=== PATIENT | male | born 1995 | race Caucasian/White ===

== ENCOUNTER 2024-01-02 12:47 | Emergency (ER) | payer BC, SELFPAY ==
[2024-01-02 13:01] VITALS: BP 128/78; PULSE 74; RESP 16; TEMP 37.3; O2SAT 98
--- NOTE | 2024-01-02 13:18 | ED.URI ---
HPI - URI/Sore Throat General Chief Complaint: Upper Respiratory Infection Stated Complaint: cough,chest congestion,left ear pain Time Seen by Provider: 01/02/24 13:13 Source: patient and RN notes reviewed Mode of arrival: ambulatory Limitations: no limitations History of Present Illness HPI Narrative: Patient presents today complaining of an 8 day history of cough, rhinorrhea, congestion. Reports the rhinorrhea congestion have since resolved the cough has persisted. Reports left ear pain since yesterday. He does report some shortness of breath with exertion. Currently rates his ear pain 3/10 and has taken some DayQuil once without much relief. Related Data Allergies Allergy/AdvReac Type Severity Reaction Status Date / Time clarithromycin Allergy Intermediate increased Unverified 12/31/13 11:12 heart rate Review of Systems Review of Systems: CONSTITUTIONAL: Denies body aches, fever, chills, or sweats. EYES: Denies visual changes, redness, or discharge. ENT: Denies sore throat.+ rhinorrhea, congestion, left ear pain CARDIOVASCULAR: Denies chest pain, palpitations, or edema. RESPIRATORY: + cough, shortness of breath with exertion GASTROINTESTINAL: Denies abdominal pain, nausea, vomiting, or diarrhea. GENITOURINARY: Denies dysuria or hematuria. SKIN: Denies rash, itching, or wounds. MUSCULOSKELETAL: Denies back pain, joint pain, or myalgia. NEUROLOGIC: Denies headache, numbness, tingling, or weakness. PSYCH: Denies depression or anxiety. PMFSH Comments At time of signature, I have reviewed and agree with nursing past medical, surgical, social and family history unless otherwise noted. Please see nursing chart for further information. There is no relevant family history pertinent to the presenting complaint Exam Narrative: GENERAL: Well-appearing, well-nourished, and in no acute distress. HEAD: Normocephalic, atraumatic. EYES: EOMI. No redness or drainage. Conjunctivae normal. ENT: Mucous membranes pink and moist. Nares clear. No rhinorrhea. Right TM normal. Left TM erythematous and bulging. Throat normal. Uvula midline. NECK: Normal AROM. Supple. No lymphadenopathy. CHEST: No respiratory distress. Clear to auscultation. HEART: Regular rate and rhythm. No murmur appreciated. EXTREMITIES: Normal range of motion. No edema. SKIN: Warm, dry, no rash. Capillary refill normal. Normal skin turgor. NEURO: No focal deficits. Alert and oriented x3. Gait steady. PSYCH: Normal affect. No signs of depression or anxiety. Course Course Level of Care: Express Care Visit Vital Signs Vital signs: Vital Signs Temperature 99.2 F 01/02/24 13:01 Pulse Rate 74 01/02/24 13:01 Respiratory Rate 16 01/02/24 13:01 Blood Pressure 128/78 01/02/24 13:01 Pulse Oximetry 98 01/02/24 13:01 Oxygen Delivery Room Air 01/02/24 13:01 Temperature 99.2 F 01/02/24 13:01 Pulse Rate 74 01/02/24 13:01 Respiratory Rate 16 01/02/24 13:01 Blood Pressure 128/78 01/02/24 13:01 Pulse Oximetry 98 01/02/24 13:01 Oxygen Delivery Room Air 01/02/24 13:01 Reviewed MDM - URI/Sore Throat MDM Narrative Medical decision making narrative: Patient has been diagnosed with left otitis media and will be prescribed amoxicillin. He has declined prescription for prednisone to help with his persistent cough. Anticipatory guidance given. ED precautions given. Differential Diagnosis Differential diagnosis: Likely upper respiratory infection, otitis media, sinusitis, viral infection, bronchitis and other (Pneumonia) Critical Care Time Critical Care Time Critical Care Time: No Discharge Plan Discharge Clinical Impression: Acute left otitis media, Bronchitis Patient Disposition: Home, Self-Care Condition: Stable Instructions: Ear Infection (GEN), Acute Bronchitis (ED) Additional Instructions: Please take the amoxicillin as prescribed until gone. Taking anti-inflammatories such as Aleve or ib
== END 2024-01-02 13:25 | disposition home or self-care (01) ==
PROVIDERS: Emergency Provider Nurse Practitioner
DX: H66.92 Otitis media, unspecified, left ear (principal); J40 Bronchitis, not specified as acute or chronic
CPT/HCPCS: 99203; G0463

== ENCOUNTER 2024-06-06 10:14 | Emergency (ER) | payer BC, SELFPAY ==
[2024-06-06 10:24] VITALS: BP 138/75; PULSE 85; RESP 16; TEMP 36.7; O2SAT 100
--- NOTE | 2024-06-06 11:14 | ED_ITS ---
HPI - Dental/Oral General Chief complaint: Dental/Oral Stated complaint: Dental/Ear Pain Time Seen by Provider: 06/06/24 11:14 Source: patient, RN notes reviewed and old records reviewed Mode of arrival: ambulatory Limitations: no limitations History of Present Illness HPI Narrative: Patient presents with complaints of right lower dental pain and right-sided ear pain. He reports symptoms began about 4 days ago. He does know that he has a tooth that needs dental attention, states that he has some associated right- sided facial swelling. He has not been taking anything for his symptoms. He denies any fever, chills, sweats. He denies any difficulty swallowing. He denies any injury or trauma. Related Data Allergies Allergy/AdvReac Type Severity Reaction Status Date / Time clarithromycin Allergy Intermediate increased Verified 06/06/24 10:17 heart rate Review of Systems 2 Review of Systems: All systems reviewed & are unremarkable except as noted in HPI and below Constitutional: Constitutional: Reports no additional constitutional complaints ENT: Reports system reviewed and no additional complaints, except as documented, Reports dental pain and Reports otalgia Cardiovascular: Cardiovascular: Reports no additional cardiovascular complaints Respiratory: Respiratory: Reports no additional respiratory complaints Gastrointestinal: Gastrointestinal: Reports no additional gastrointestinal complaints PMFSH Comments At the time of my signature, I reviewed and agree with the nursing past medical, surgical, social, and family history. There is no relevant family history pertinent to the patient complaint. Exam 2 Const: General: cooperative, no acute distress, alert and awake O rientation/consciousness: oriented to person, oriented to place and oriented to time HENMT: Head: normal to inspection Ears: TM's normal bilaterally Face images: 1. trace swelling that does not extend into the Mouth: Yes moist mucous membranes Teeth and gingiva: caries, fair dentition and gingiva abnormal with purulent discharge (Surrounding tooth 31 which has active dental caries) Resp: Effort & Inspection: normal respiratory effort and able to speak in complete sentences Auscultation: clear to auscultation bilaterally, no crackles, no rales, no rhonchi and no wheezes Cardio: Palpation: normal PMI Rate: regular rate Rhythm: regular rhythm Heart sounds: S1 normal heart sound present and S2 normal heart sound present Neuro: General: oriented to person, oriented to place and oriented to time Cranial nerves: Yes CN's II-XII intact bilaterally Psych: Appearance: grossly normal Thought process: Normal thought process present Insight: Good insight present (Psych) Judgement: Good judgement present (Psych) Course Course Level of Care: Express Care Visit Vital Signs Vital signs: Vital Signs Temperature 98.0 F 06/06/24 10:24 Pulse Rate 85 06/06/24 10:24 Respiratory Rate 16 06/06/24 10:24 Blood Pressure 138/75 06/06/24 10:24 Pulse Oximetry 100 06/06/24 10:24 Oxygen Delivery Room Air 06/06/24 10:24 Temperature 98.0 F 06/06/24 10:24 Pulse Rate 85 06/06/24 10:24 Respiratory Rate 16 06/06/24 10:24 Blood Pressure 138/75 06/06/24 10:24 Pulse Oximetry 100 06/06/24 10:24 Oxygen Delivery Room Air 06/06/24 10:24 Reviewed MDM - Dental/Oral MDM Narrative Medical decision making narrative: Patient with dental infection, has dentist appointment in 2 weeks. Start Augmentin. Follow up. Patient nontoxic appearing no distress Discharge instructions reviewed with patient, as well as provided in writing per nursing staff. The instructions also include specific and strict return/GO TO THE ER as well as f/u information. All questions have been answered, and the patient deny any further questions with discharge and discharge plan. Some parts of this dictation were generated by voice recognition software and may contain typographical and/or grammatical inaccuracies. Differential Diagnosis Differential diagnosis: Likely dental caries, toothache and dental abscess Medical Records Attestation: I reviewed the patient's medical records. Discharge Plan Discharge Clinical Impression: Dental infection Patient Disposition: Home, Self-Care Condition: Stable Instructions: Antibiotic Form, Dental Abscess (ED) Additional Instructions: Take medications as prescribed. Follow with primary care provider and dentist. Emergency department for new or worse symptoms Patient Language: Slovenian Prescriptions: New amoxicillin-pot clavulanate 875-125 mg tablet 1 tablet PO Q12H Qty: 20 0RF Follow-up/Referrals: PHYSICIAN,PRODUCTION PROOFREADER [Primary Care Provider] - Time of Disposition: 11:20
== END 2024-06-06 11:25 | disposition home or self-care (01) ==
PROVIDERS: Emergency Provider Nurse Practitioner Family
DX: K04.7 Periapical abscess without sinus (principal)
CPT/HCPCS: 99213; G0463